=== PATIENT | female | born 1955 | race African-American/Black ===

== ENCOUNTER 2016-07-21 17:26 | Emergency (ER) | payer OTHER ==
[~2016-07-21] VITALS: Ht 160 cm; Wt 70.3 kg
[~2016-07-21 17:26] MED LIST: CIPROFLOXACIN500 M1 PO; CRESTOR5 MG PO; MULTI VITAMIN1 EACH PO; NORCO 5-325 TA1 EACH PO; ZOFRAN4 MG PO
[2016-07-21 19:23] LABS: URINE BILIRUBIN NEGATIVE (Negative); URINE BLOOD 1+ (Negative); URINE COLOR YELLOW; URINE GLUCOSE-RANDOM* NEGATIVE (Negative); URINE KETONES NEGATIVE (Negative); URINE LEUKOCYTES-REFLEX 1+ (Negative); URINE PROTEIN (DIPSTICK) NEGATIVE (Negative); URINE UROBILINOGEN 0.2 E.U./dl (0.2-1.0)
[2016-07-21 19:33] LABS: CASTS None Seen /LPF (None Seen); CRYSTALS None Seen /LPF (None Seen); SQUAMOUS 0-3 Few /LPF (0-3); URINE RBC 0-2 Rare /HPF (0-2); URINE WBC-REFLEX 0-5 Rare /HPF (0-5)
[2016-07-21 19:37] LABS: ABSOLUTE NEUTROPHILS 5.7 thou/uL (1.4-8.2); BASOPHILS 0.9 % (0.0-2.0); EOSINOPHILS 3.4 % (0.0-3.0); HEMATOCRIT 39.4 % (37.0-47.0); HEMOGLOBIN 12.6 gm/dL (12.0-15.0); LYMPHOCYTES 29.5 % (24.0-44.0); MANUAL DIFF NO; MCH 26.2 pg (26.0-34.0); MONOCYTES 9.2 % (1.0-8.0); PLATELET COUNT 279 thou/uL (150-400)
[2016-07-21 19:43] LABS: CALCIUM 9.5 mg/dL (8.5-10.1); CREATININE 0.8 mg/dL (0.6-1.0); POTASSIUM 3.7 mmol/L (3.5-5.1)
[2016-07-21] MEDS ORDERED: MOBIC15 MG PO (19:57)
[2016-07-21 20:09] VITALS: BP 133/84
== END 2016-07-21 20:10 | disposition home or self-care (01) ==
LOC: ER 17:26
PROVIDERS: Emergency Medicine
DX: K80.20 Calculus of gallbladder without cholecystitis without obstruction (principal)